=== PATIENT | male | born 1950 | race Two or more races ===

== ENCOUNTER 2018-02-02 08:36 | Day surgery (SDC) | payer OTHER ==
[~2018-02-02] VITALS: Ht 177.8 cm; Wt 76.7 kg
[~2018-02-02 08:36] MED LIST: AEC81 PO; ATOR10 PO; GLIP5TAB11 PO; LOSA100T29 PO; MULT1TAB70 PO; SODIUM CHLORIDE 0.9% 1000ML 1,000 ML IV ONE
[2018-02-02 09:10] VITALS: BP 140/78
[2018-02-02] MEDS ORDERED: EPHEDRINE SULFATE 50 MG/ML AMPULE ONE (10:04)
[2018-02-02] MEDS ORDERED: PROPOFOL 10 MG/ML 20ML VIAL IV ONE (10:04)
[2018-02-02 10:17] VITALS: BP 114/65
== END 2018-02-02 10:50 | disposition home or self-care (01) ==
LOC: ENDO 08:36 → DAH 08:36 → EDSEX 10:30 → ENDO 10:50
PROVIDERS: ATTEND Internal Medicine Gastroenterology
DX: Z12.11 Encounter for screening for malignant neoplasm of colon (principal); K63.5 Polyp of colon; K57.30 Diverticulosis of large intestine without perforation or abscess without bleeding; E11.9 Type 2 diabetes mellitus without complications; I10 Essential (primary) hypertension; E78.5 Hyperlipidemia, unspecified; Z79.899 Other long term (current) drug therapy; Z98.890 Other specified postprocedural states; Z79.82 Long term (current) use of aspirin
CPT/HCPCS: 45380; 82948 ×2; 88305; 93005; A4606; J2704; J3490; J7030